=== PATIENT | female | born 2000 | race African-American/Black ===

== ENCOUNTER 2021-05-19 05:02 | Emergency (ER) | payer BC, SELFPAY ==
[2021-05-19 05:08] VITALS: BP 147/87; PULSE 128; RESP 18; TEMP 36.6; O2SAT 99
--- NOTE | 2021-05-19 05:23 | ED.SKABFB ---
HPI - Skin/Abscess/Foreign Bdy General Chief complaint: Skin/Abscess/Foreign Body Stated complaint: hives, allergic reaction? Time Seen by Provider: 05/19/21 05:14 Source: patient History of Present Illness HPI narrative: Patient presents with rash. Reports she woke up very itchy and lesions predominantly on her lower extremities. She was concerned so she came to the ER for evaluation reports the lesions are very itchy she denies pain she denies any shortness of breath denies any nausea vomiting or diarrhea denies any globus sensation or difficulty swallowing. Denies prior history of allergic reactions. Related Data Allergies Allergy/AdvReac Type Severity Reaction Status Date / Time No Known Allergies Allergy Verified 05/19/21 05:28 Review of Systems Review of Systems: CONSTITUTIONAL: Denies fever, chills, or sweats. EYES: Denies visual changes, redness, or discharge. ENT: Denies rhinorrhea, congestion, sore throat, or otalgia. CARDIOVASCULAR: Denies chest pain, palpitations, or edema. RESPIRATORY: Denies cough or dyspnea. GASTROINTESTINAL: Denies abdominal pain, nausea, vomiting, or diarrhea. GENITOURINARY: Denies dysuria or hematuria. SKIN: Reports itchy rash on the lower extremities MUSCULOSKELETAL: Denies back pain, joint pain, or myalgia. NEUROLOGIC: Denies headache, numbness, dizziness, or weakness. PSYCHIATRIC: Denies anxiety or depression. All systems reviewed & are unremarkable except as noted in HPI and below PMFSH Past Medical History Medical History (Updated 05/19/21 @ 05:30 by Clem Ortiz MD) Patient denies significant medical history Social History Social History (Updated 05/19/21 @ 05:24 by Clem Ortiz MD) Substance use: never Exam Narrative: GENERAL: Well-appearing, well-nourished, and in no acute distress. HEAD: Normocephalic, atraumatic. EYES: PERRLA and EOMI. ENT: Nares clear, no rhinorrhea or epistaxis. Mucous membranes moist. No swelling in the posterior pharynx NECK: Supple. No masses. No JVD CHEST: Clear to auscultation. No respiratory distress. No wheezes rales or rhonchi HEART: Regular rate and rhythm. No murmur heard. Normal peripheral pulses. ABDOMEN: Soft, nontender, nondistended EXTREMITIES: Normal range of motion. No edema. SKIN: Warm, dry. Multiple erythematous raised lesions predominantly on the bilateral lower extremities appearing clusters of 2-4, no lesions noted in the waistband or between the toes no lesions on the torso. Ulcerations no pustules or draining wounds NEURO: No focal deficits. Alert and oriented x3. PSYCH: Normal mood and affect. Course Vital Signs Vital signs: Vital Signs Temperature 36.6 C 05/19/21 05:08 Pulse Rate 128 H 05/19/21 05:08 Respiratory Rate 18 05/19/21 05:08 Blood Pressure 147/87 H 05/19/21 05:08 Pulse Oximetry 99 05/19/21 05:08 Temperature 36.6 C 05/19/21 05:08 Pulse Rate 128 H 05/19/21 05:08 Respiratory Rate 18 05/19/21 05:08 Blood Pressure 147/87 H 05/19/21 05:08 Pulse Oximetry 99 05/19/21 05:08 MDM - Skin/Abscess/Foreign Bdy MDM Narrative Medical decision making narrative: H&P as above, vss, pt looks clinically well, exam raised erythematous lesions appearing in small clusters, labs/img considered, symptomatic relief available as needed, patient given Atarax on reevaluation pt continues to looks clinically well. Suspect insect bites, dns anaphylaxis, cellulitis, severe sepsis, necrotizing soft tissue infection. plan to tx/monitor as op w/ pcm f/u findings/plan discussed with pt, pt agree/comfortable with plan, return precautions given Discharge Plan Discharge Clinical Impression: Insect bite Qualifiers: Encounter type: initial encounter Site of insect bite: unspecified site Qualified Code(s): W57.XXXA - Bitten or stung by nonvenomous insect and other nonvenomous arthropods, initial encounter Patient Disposition: Home, Self-Care Condition: Improved Instructions: Antibiotic Form, I
[2021-05-19] MEDS: hydrOXYzine HCL 25 MG TABLET PO (05:30)
== END 2021-05-19 05:45 | disposition home or self-care (01) ==
LOC: ANHED 05:31
PROVIDERS: Emergency Provider Emergency Medicine
DX: S80.862A Insect bite (nonvenomous), left lower leg, initial encounter (principal); S80.861A Insect bite (nonvenomous), right lower leg, initial encounter; W57.XXXA Bitten or stung by nonvenomous insect and other nonvenomous arthropods, initial encounter
CPT/HCPCS: 99283; A9270